=== PATIENT | female | born 1980 | race Caucasian/White ===

== ENCOUNTER 2017-05-08 07:05 | Day surgery (SDC) | payer BC ==
[~2017-05-08] VITALS: Ht 165.1 cm; Wt 96.6 kg
[~2017-05-08 07:05] MED LIST: ALKA-SELTZER P1 EAC3 PO; BIOTIN1 M1 PO; CETIRIZINE HCL10 MG PO; CIPRO500 MG PO; CLINDAMYCIN HC150 MG PO; CRANBERRY200 MG PO; FLEXERIL10 MG PO; FLUTICASONE PRO16 GM NS; HYDROCHLOROTHIA25 MG PO; K-TAB ER20 MEQ PO; LEXAPRO20 MG PO; MELATONIN2.5 MG PO; MULTI VITAMIN1 EACH PO; NAPROXEN375 MG PO; NAPROXEN500 MG PO; NORCO 10-325 T1 EACH PO; NORCO 5-325 TA1 EACH PO; PREDNISONE20 MG PO; PROMETHAZINE HC25 M1; ROPINIROLE HCL0.5 MG PO; SULFAMETHOXAZO1 EAC1; ULTRAM50 MG PO; VICODIN 5-5001 EACH PO; VITAMIN C100 MG PO; ZYRTEC10 MG PO
[2017-05-08] MEDS ORDERED: IBUPROFEN600 MG PO (11:36)
[2017-05-08] MEDS ORDERED: MAPAP325 MG PO (11:36)
[2017-05-08] MEDS ORDERED: OXYCODON-ACETA1 EAC2 PO (11:36)
--- NOTE | 2017-05-10 10:07 | OR ---
[facility] [address], [place] [address] Signed DATE OF OPERATION: 05/08/2017 SURGEON: Kyara Mejias MD PREOPERATIVE DIAGNOSES: 1. Left abnormal mammogram. 2. Left nipple inversion. POSTOPERATIVE DIAGNOSES: 1. Left abnormal mammogram. 2. Left nipple inversion. PROCEDURE: Needle localized excision of left upper outer quadrant breast tissue in continuity of subareolar breast tissue and dilated duct. ANESTHESIA: General endotracheal; Kyara Andrade CRNA and local, 10 mL of 0.25% Marcaine with epinephrine. INDICATION: This 36-year-old white woman is a patient of PEGGY Herr and in the past, underwent bilateral breast reduction and for symptomatic breast enlargement in 2011. She had no complication of infection or other problem. She had marked benefit from her headache pain and shoulder pain. She was considered to have some areas of lumpiness in the left breast and on that basis, underwent an ultrasound and subsequently mammogram and additional ultrasound on the left side. She was noted to have an inverted left nipple, which has been going on for several months and definitely not a lifelong issue. Imaging studies showed a dilated ductal system in the subareolar area on the left as well as some microcalcifications and questionable mass. There was no palpable lesion, however. The lesion was considered BI-RADS category 4. Additionally, she has had some nipple discharge (clear fluid) over time on the left side. She has had a culture of the drainage which did show Staph, though the degree to which this represented skin contamination remains uncertain. She does smoke a pack of cigarettes a day. She is admitted at this time to undergo a needle localized excision of the calcifications and associated mass of the left upper outer quadrant as well as excision of the ductal system beneath the left areola. She understands the risks of bleeding, infection, cosmetic deformity, need for additional treatment, should malignancy be found, and other unforeseen complications and wished to proceed. Electronically Signed By: KYARA MEJIAS MD 05/10/17 1007 PATIENT NAME: JOSEE MACARIO OPERATIVE REPORT DATE OF : 78 REPORT #: [id number] PHYSICIAN: KYARA MEJIAS MD PCP: SHANNON MORE REPORT IS CONFIDENTIAL AND NOT TO BE RELEASED WITHOUT AUTHORIZATION [facility] [address], [place] [address] Signed FINDINGS: The needle emanated from the upper outer aspect of the left breast. Review of the imaging studies in relationship to the needle itself was undertaken with the radiologist preoperatively. An area was marked where dilated mammary ducts were noted as well. A circumareolar incision was maintained for optimal cosmesis and wide and deep resection of the area in question was accomplished which included the subareolar ductal system and marked improvement of the inverted nipple. Specimen radiograph confirmed that the areas in question were included in the resected specimen. Good closure was undertaken with breast parenchymal reapproximation. DESCRIPTION OF PROCEDURE: The patient was brought to the operating room after having been received from Radiology suite with the wire emanating from the upper outer aspect on the left side. Additionally, a marking was made near the areola to guide the area of ductal dilatation. A general endotracheal anesthetic was preferred by the patient and was performed without problem. Preoperative antibiotic Ancef was given. Sequential compression device stockings used and heparin subcutaneously administered. The left breast was prepared with a spray Betadine type solution. The area was sterilely draped. A curvilinear incision was made in the left areola and dissection carried through the dermis with electrocautery. A flap was elevated cephalad going several centimeters to the entry point of the wire. The wire was then encountered and withdrawn into the wound and an Allis clamp applied to the parenchyma associated with the wire. Extending from a lateral to central direction, wide excision of breast tissue was undertaken with electrocautery extending beyond the area of the wire to the subareolar area, which included dilated ducts. This was excised completely. The specimen was passed for specimen radiograph and later confirmed to have the offending lesion in the specimen. Some dermal scarring which accounted in part for nipple inversion was freed allowing for more cosmetic appearance of the left nipple itself. Irrigation was undertaken. There was no untoward bleeding. The parenchyma of the breast was reapproximated with interrupted 2-0 Vicryl. Interrupted 2-0 Vicryl was used for the deep dermis and running subcuticular 3-0 Vicryl for the skin. Steri-Strips were applied as was Mepilex silver sponge dressing and an OpSite. The patient was then extubated and transferred to the recovery room in good condition having suffered no complications. Sponge, needle, and instrument counts were reported as correct x3. Electronically Signed By: KYARA MEJIAS MD 05/10/17 1007 PATIENT NAME: JOSEE MACARIO OPERATIVE REPORT DATE OF : 78 REPORT #: [id number] PHYSICIAN: KYARA MEJIAS MD PCP: SHANNON MORE REPORT IS CONFIDENTIAL AND NOT TO BE RELEASED WITHOUT AUTHORIZATION [facility] [address] [place] [address] Signed MD JAKOB Gaviria/MODL /[id number] cc: PEGGY Guzman MD Copies: SHANNON MORE CYNTHIA SUE MD ~ Electronically Signed By: KYARA MEJIAS MD 05/10/17 1007 PATIENT NAME: JOSEE MACARIO OPERATIVE REPORT DATE OF : 78 REPORT #: [id number] PHYSICIAN: KYARA MEJIAS MD PCP: SHANNON MORE REPORT IS CONFIDENTIAL AND NOT TO BE RELEASED WITHOUT AUTHORIZATION
== END 2017-05-08 13:50 | disposition home or self-care (01) ==
LOC: DS 07:05 → OPS 07:05 → EDSTATUS 08:00 → US 08:00 → OPS 08:00
PROVIDERS: Surgery
PROC: 0HBU0ZZ Excision of Left Breast, Open Approach (ICD-10-PCS; principal; 2017-05-08 10:15)
DX: N60.32 Fibrosclerosis of left breast (principal); N61.1 Abscess of the breast and nipple; E66.9 Obesity, unspecified; K21.9 Gastro-esophageal reflux disease without esophagitis; I10 Essential (primary) hypertension; F32.9 Major depressive disorder, single episode, unspecified; F17.210 Nicotine dependence, cigarettes, uncomplicated; Z68.35 Body mass index [BMI] 35.0-35.9, adult; Z88.8 Allergy status to other drugs, medicaments and biological substances; Z79.899 Other long term (current) drug therapy; Z80.3 Family history of malignant neoplasm of breast; Z98.890 Other specified postprocedural states
CPT/HCPCS: 00404; 76098; 76942; 77065; 84703; J0690; J1100; J1644; J1885; J2250; J2405; J2704; J2765; J3010; J7120

== ENCOUNTER 2018-12-04 18:57 | Emergency (ER) | payer BC ==
[~2018-12-04] VITALS: Ht 165.1 cm; Wt 96.6 kg
[~2018-12-04 18:57] MED LIST changes: +IBUPROFEN600 MG PO; +MAPAP325 MG PO; +OXYCODON-ACETA1 EAC2 PO
[2018-12-04] MEDS ORDERED: SPIRONOLACTONE25 MG PO (19:08)
[2018-12-04] MEDS ORDERED: PRAVASTATIN SOD40 MG PO (19:09)
[2018-12-04] MEDS ORDERED: OMEPRAZOLE20 MG PO (19:09)
[2018-12-04] MEDS ORDERED: VALIUM5 MG PO (21:06)
== END 2018-12-04 21:21 | disposition home or self-care (01) ==
LOC: ED 18:57
DX: H83.09 Labyrinthitis, unspecified ear (principal); F41.9 Anxiety disorder, unspecified; F17.200 Nicotine dependence, unspecified, uncomplicated; G43.909 Migraine, unspecified, not intractable, without status migrainosus; Z88.2 Allergy status to sulfonamides; Z88.8 Allergy status to other drugs, medicaments and biological substances; Z79.899 Other long term (current) drug therapy
CPT/HCPCS: 80053; 85025; 96361; 96374; 96375; 99284-25; J0780; J1200; J1885; J3360; J7030

== ENCOUNTER 2019-03-18 09:27 | Observation (INO) | payer BC ==
[~2019-03-18] VITALS: Ht 165.1 cm; Wt 101.6 kg
[~2019-03-18 09:27] MED LIST changes: +OMEPRAZOLE20 MG PO; +PRAVASTATIN SOD40 MG PO; +SPIRONOLACTONE25 MG PO; +VALIUM5 MG PO
[2019-03-18] MEDS ORDERED: VERAPAMIL ER120 M1 PO (09:43)
[2019-03-18] MEDS ORDERED: DOXYCYCLINE MO100 M1 PO (09:43)
--- NOTE | 2019-03-18 13:15 | NUR ---
Patient laying in bed, awake and alert. Patient prepared for surgery with hibiclins wipedown, SCDs placed, and pre-op checklist completed. Warm blankets provided, denies further needs at this time. Call light within reach.
--- NOTE | 2019-03-18 14:15 | NUR ---
Patient leaves unit via hospital bed to the OR
--- NOTE | 2019-03-18 16:03 | NUR ---
03/18/19 1603 Chetna Santana 1558-PATIENT ARRIVED TO PACU ON 6L MASK REACTIVE TO VOICE OPENING EYES VERY DROWSY. GAUZE CDI TO LEFT BREAST. SR. IVF INFUSING. 1600-PATIENT AROUSING TO VERBAL STIMULI DENIES PAIN OR NAUSEA. CLOSES EYES. RR EVEN.
--- NOTE | 2019-03-18 17:50 | NUR ---
Patient sitting up in bed watching tv with family. Assessment complete. LR running at 125 mls/hr. SpO2 of 93% on RA. Ice applied to left breast. Dressing is C/D/I. Denies further needs at this time, call light within reach.
--- NOTE | 2019-03-18 19:40 | NUR ---
IN ROOM FOR REPORT, PT IS AWAKE IN BED. SHE DENIES NEEDS AT THIS TIME. CALL LIGHT IS CLOSE.
--- NOTE | 2019-03-18 20:33 | NUR ---
V/S AND I&O TAKEN AND CHARTED.
--- NOTE | 2019-03-18 21:20 | NUR ---
ASSESSED PT AND ADMINISTERED MEDICATIONS. ADMINISTERED TYLENOL WELL FOR 6/10 PAIN. DRESSING IS CDI AND PT DENIES NEEDS AT THIS TIME. CALL LIGHT IS CLOSE.
--- NOTE | 2019-03-18 23:32 | NUR ---
PT IS RESTING WITH EYES CLOSED, RR IS EVEN AND NONLABORED. CALL LIGHT IS CLOSE.
--- NOTE | 2019-03-19 00:51 | NUR ---
PT'S IV WAS BEEPING, NEW BAG OF LR IS NOW INFUSING. SBA TO THE RESTROOM AND BACK TO BED. PT DENIES NEEDS AT THIS TIME. CALL LIGHT IS WITHIN REACH.
--- NOTE | 2019-03-19 03:17 | NUR ---
ADMINISTERED MOTRIN FOR 5/10 PAIN IN L BREAST. PT STATES SHE ACCIDENTALY HIT IT. DRESSING IS CDI AND NO SHADOWING NOTED. IV IS INFUSING FINE. PT DENIES FURTHER NEEDS AT THIS TIME. CALL LIGHT IS CLOSE.
--- NOTE | 2019-03-19 04:18 | NUR ---
ANSWERED CALL LIGHT. SBA TO THE BATHROOM AND BACK TO BED. NO OTHER NEEDS AT THIS TIME.
--- NOTE | 2019-03-19 04:57 | NUR ---
PT IS RESTING WITH EYES CLOSED, RR IS EVEN AND NONLABORED. CALL LIGHT IS CLOSE AND IV IS INFUSING FINE.
--- NOTE | 2019-03-19 07:03 | NUR ---
PT RESTING IN SEMIFOWLERS POSITION IN BED ALERT AND ORIENTED AND WATCHING TV. PT DENIES NEEDS OR CONCERNS. CALL LIGHT AND H2O IN REACH. BEDSIDE REPORT RECEIVED FROM MIMI PATEL.
--- NOTE | 2019-03-19 08:26 | NUR ---
pt s/l for ambulation in halls at this time
--- NOTE | 2019-03-19 08:45 | NUR ---
PT ASSESSMENT COMPLETED AND AM MEDS ADMINISTERED. PT DENIES PAIN, SOB, NAUSEA OR OTHER SYMPTOMS. DRESSING TO LEFT BREAST ABCESS REMOVED, CLEANSED WITH NS PAT DRIED AND NEW STERILE 4X4 GUAZE AND TAPE APPLIED WITH ASSISTANCE FROM STUDENT NURSE. CALL LIGHT AND H2O IN REACH. VSS. PT VOIDING QS CLEAR YELLOW URINE AND TOLERATING ORAL INTAKE VERY WELL. NO NEEDS OR CONCERNS VOICED.
--- NOTE | 2019-03-19 10:45 | NUR ---
pt alert and oriented resting in bed no needs or concerns voiced.
[2019-03-19] MEDS ORDERED: AMOX TR-K CLV1 EAC1 PO (10:57)
[2019-03-19] MEDS ORDERED: HYDROMORPHONE HC4 MG PO (10:58)
[2019-03-19] MEDS ORDERED: IBUPROFEN600 MG PO (10:58)
[2019-03-19] MEDS ORDERED: TYLENOL EXTRA500 MG PO (10:58)
--- NOTE | 2019-03-19 13:14 | NUR ---
PT ALERT,ORIENTED AND VISITING WITH HER . PT IS WAITING FOR DC. GAVE INFO OF DC AND WHAT TO EXPECT. PT IS VERY CHEERFUL AND MENTIONED THAT SHE IS VERY PLEASED WITH CARE SHE HAS RECEIVED AT [facility] AND ALSO FROM DR MEJIAS. GAVE BLESSING, WILL FOLLOW NEEDED
--- NOTE | 2019-03-19 13:20 | OR ---
[facility] [address] [place], [place] [address] Signed DATE OF OPERATION: 03/18/2019 SURGEON: Kyara Mejias MD PREOPERATIVE DIAGNOSES: 1. Left subareolar breast abscess. 2. History of bilateral breast reduction. POSTOPERATIVE DIAGNOSES: 1. Left subareolar breast abscess. 2. History of bilateral breast reduction. 3. Fibrotic, inflamed subareolar ductal tissue. PROCEDURE: 1. Incision and drainage of left subareolar abscess. 2. Left subareolar breast excision. ANESTHESIA: General LMA; Kimberly Mcrae CRNA. INDICATION: This is a 38-year-old white woman, who has had over a week of increasing pain in the left subareolar area. She has undergone bilateral reduction mammoplasty in the past. She has had fevers to 101 and has been unresponsive to an oral antibiotic doxycycline prescribed by her primary care provider. Examination shows her to have erythema and marked tenderness in the 2 o'clock position of the left areolar margin. I have advised incision and drainage and possible subareolar breast tissue excision to remedy the obvious breast abscess problem. She did have an ultrasound, which showed 2 or 3 abscess cavities extending below the areolar area. She understands the risks of bleeding, infection, cosmetic deformity, and other unforeseen complications and wished to proceed. FINDINGS: Indeed, there was purulent material upon incision at the areolar margin in the 2 o'clock position. Gram stain and cultures were obtained. Importantly, however, she had fibrotic pathologic ductal tissue beneath the areola, for which wide excision was undertaken with care taken to excise that below the dermis of the areolar margin itself. Partial parenchymal closure was undertaken with placement of a Carri drain deep within the substance of the excision site. DESCRIPTION OF PROCEDURE: Electronically Signed By: KYARA MEJIAS MD 03/19/19 1320 PATIENT NAME: JOSEE MACARIO OPERATIVE REPORT DATE OF : 78 REPORT #: [id number] PHYSICIAN: KYARA MEJIAS MD PCP: JOSE GERMAN REPORT IS CONFIDENTIAL AND NOT TO BE RELEASED WITHOUT AUTHORIZATION [facility] [address] [place], [place] [address] Signed The patient was brought to the operating room, given a general anesthetic by LMA technique. Preoperative antibiotic Ancef was given. Sequential compression device stockings used and heparin subcutaneously administered. After satisfactory general LMA anesthetic, the left breast was prepared with a DuraPrep solution and draped sterilely. The areolar margin at the 2 o'clock position was incised with a #15 blade, allowing for egress of purulent material. Photograph was taken. Gram stain and cultures were obtained for both aerobes and anaerobes. Further interrogation of the subareolar space showed a firm fibrotic tissue. Incision was extended along the areolar margin more fully. Excision of breast tissue was undertaken beneath the areola itself including the pathologic ductal system below the dermis. It was taken deeply into the area of fibrotic pathologic breast tissue as well. By conclusion, all pathologic ductal tissue was excised fully. Electrocautery was used for hemostasis. Irrigation was undertaken copiously to assure hemostasis. A quarter-inch Lawley placed in the depths of the excision cavity and parenchymal reapproximation undertaken with interrupted 2-0 Vicryl, few interrupted 3-0 Vicryl in deep dermal layer was undertaken. The drain was secured to the skin with a nylon suture. A fluff gauze dressing and additional gauze applied as was a silk tape. The patient was extubated and transferred to recovery room in good condition having suffered no complications. Sponge, needle, and instrument counts were correct x3. Kyara Mejias MD /NILAL /[id number] cc: MD Jose Rojas FNP Copies: ALEXY SOARES MD, WADE R FNP ~ Electronically Signed By: KYARA MEJIAS MD 03/19/19 1320 PATIENT NAME: JOSEE MACARIO OPERATIVE REPORT DATE OF : 78 REPORT #: [id number] PHYSICIAN: KYARA MEJAIS MD PCP: JOSE GERMAN REPORT IS CONFIDENTIAL AND NOT TO BE RELEASED WITHOUT AUTHORIZATION
--- NOTE | 2019-03-19 13:20 | HP ---
[facility] [address] [place], [place] [address] Signed ADMISSION DATE: 03/18/2019 REASON FOR ADMISSION: Complex left subareolar breast abscess. HISTORY OF PRESENT ILLNESS: This 38-year-old obese white woman has had over a week of increasing pain and erythema of her left subareolar area. She saw her primary care provider on Sunday, a week ago and she was started on doxycycline. Her symptoms did not improve and she was urged to present to the emergency room on Sunday, 4 days ago, but she did not do so. She then noted some nipple drainage and had a fever to 101 on Sunday (today is Sunday). She presented to emergency room where she was evaluated by Dr. Soares. Tenderness and mild erythema were noted in the left areolar area and an ultrasound was performed showing complex fluid collection with at least 3 fluid collections of 2 cm in size. She is admitted for further evaluation and care to undergo incision and drainage of probable left subareolar breast abscess. PAST MEDICAL HISTORY: Does include x3, as well as breast reduction. She has had 2 cysts removed from the right breast. She had a needle localized excisional biopsy by me in 2018 for suspicious calcium deposits, which proved to be benign. She has no known family history of breast cancer. She has had a long-standing bilateral inverted nipple finding. Past medical history significant for morbid obesity and breast reduction surgery as previously noted. She has allergy to sulfa medications. She does have hypertension, for which she takes verapamil and spironolactone and reflux disease, for which she takes omeprazole. She has dyslipidemia and takes pravastatin for that. She is also taking ropinirole. REVIEW OF SYSTEMS: She denies any fever or chills, though she generally does not feel well. 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 She has had no solid food since yesterday. SOCIAL HISTORY: She is . She has children. She lives in [place]. PHYSICAL EXAMINATION: GENERAL: Obese white woman, who looks to be in moderate discomfort. Electronically Signed By: KYARA MEJIAS MD 03/19/19 1320 PATIENT NAME: JOSEE MACARIO HISTORY AND PHYSICAL DATE OF : 78 REPORT #: [id number] PHYSICIAN: KYARA MEJIAS MD PCP: JOSE GERMAN REPORT IS CONFIDENTIAL AND NOT TO BE RELEASED WITHOUT AUTHORIZATION [facility] [address] [place], [place] [address] Signed HEENT: Mucous membranes are quite dry. NECK: Trachea is midline. CHEST: Clear. HEART: Regular without murmur. BREASTS: There are scars on both right and left breasts that are consistent with prior reduction mammoplasty. Focused attention to the left areolar area shows a somewhat edematous area, mild erythema, and mild local tenderness. Inverted nipples noted on left and right side. Palpation does not reveal focal mass. There is tenderness, however. The left axilla is normal. ABDOMEN: Obese, but soft. There are scars from prior laparoscopic cholecystectomy. EXTREMITIES: Show no clubbing, cyanosis, or edema. DIAGNOSTIC DATA: Laboratory study from emergency room shows a white count of 10, hematocrit of 50, platelets of 213,000. Basic panel and beta-hCG are pending. I reviewed the ultrasound myself. Interpretation by Dr. Ingram, the radiologist describes that immediately beneath the left areola there is a 20 mm heterogeneous hypoechoic area showing hypervascularity consistent with abscess or granulation tissue. There is a tract extending to the upper outer aspect leading to an irregular hypoechoic fluid-filled collection 18 mm, about 15 mm from the skin surface. ASSESSMENT: The patient has probable left breast abscess, for which incision, drainage, and debridement is appropriate. The risk of bleeding, infection, cosmetic deformity, need for additional treatment including partial breast resection was all reviewed in detail. She understands and wished to proceed. Plan was directly admit to the hospital, begin IV fluids, keep n.p.o. anticipating drainage and debridement today. Kyara Mejias MD JM/MODL /[id number] cc: Jose Soares MD Electronically Signed By: KYARA MEJIAS MD 03/19/19 1320 PATIENT NAME: JOSEE MACARIO HISTORY AND PHYSICAL DATE OF : 78 REPORT #: [id number] PHYSICIAN: KYARA MEJIAS MD PCP: JOSE GERMAN REPORT IS CONFIDENTIAL AND NOT TO BE RELEASED WITHOUT AUTHORIZATION [address] [address] Signed Copies: JOSE SOARES MD ~ Electronically Signed By: KYARA MEJIAS MD 03/19/19 1320 PATIENT NAME: JOSEE MACARIO HISTORY AND PHYSICAL DATE OF : 78 REPORT #: [id number] PHYSICIAN: KYARA MEJIAS MD PCP: JOSE GERMAN REPORT IS CONFIDENTIAL AND NOT TO BE RELEASED WITHOUT AUTHORIZATION
== END 2019-03-19 12:45 | disposition home or self-care (01) ==
LOC: ED 09:27 → MS 09:29
PROVIDERS: ADMIT Surgery
PROC: 0HBU0ZZ Excision of Left Breast, Open Approach (ICD-10-PCS; 2019-03-18)
PROC: 0H9U0ZZ Drainage of Left Breast, Open Approach (ICD-10-PCS; principal; 2019-03-18 15:00)
DX: N61.1 Abscess of the breast and nipple (principal); N60.32 Fibrosclerosis of left breast; F17.210 Nicotine dependence, cigarettes, uncomplicated; K21.9 Gastro-esophageal reflux disease without esophagitis; E66.9 Obesity, unspecified; Z68.37 Body mass index [BMI] 37.0-37.9, adult; Z98.890 Other specified postprocedural states; Z88.2 Allergy status to sulfonamides; Z88.8 Allergy status to other drugs, medicaments and biological substances; Z79.899 Other long term (current) drug therapy
CPT/HCPCS: 00404; 76642; 80048; 84703; 85025; 87070; 87075; 87205; 94762; 96361; 96372; 96376; 99284-25; 99406; A9270; G0378; J0690; J1100; J1170; J1644; J1885; J2001; J2250; J2405; J2704; J3010; J7030; J7121

== ENCOUNTER 2019-08-20 14:03 | Observation (INO) | payer BC, OTHER ==
[~2019-08-20] VITALS: Ht 165.1 cm; Wt 101.2 kg
[~2019-08-20 14:03] MED LIST changes: +AMOX TR-K CLV1 EAC1 PO; +DOXYCYCLINE MO100 M1 PO; +HYDROMORPHONE HC4 MG PO; +TYLENOL EXTRA500 MG PO; +VERAPAMIL ER120 M1 PO
--- NOTE | 2019-08-20 19:05 | NUR ---
SHIFT REPORT RECEIVED FROM NETTE LE. PT RESTING IN BED,WATCHING TV. NO NEEDS AT THIS TIME. CALL LIGHT IN REACH.
--- NOTE | 2019-08-20 20:10 | NUR ---
ASSESSMENT COMPLETED. SCHEDULED MEDS PROVIDED. PT COMPLAINS OF NAUSEA, PRN NAUSEA MED PROVIDED. LUNGS CLEAR, BOWEL TONES ACTIVE. NO EDEMA NOTED. PT DENIES PAIN. IV PT STATES SHE HAS PAIN AT SITE, FLUSHED WELL. ICE PACK PROVIDED. NO OTHER NEEDS AT THIS TIME. CALL LIGHT IN REACH.
--- NOTE | 2019-08-20 20:39 | NUR ---
PT SMOKES A PACK CIGARETTES PER DAY PER KAMRYN, RESPITORY THERAPIST, REQUESTED TO CONTACT PT FOR "NICTINE PATCHES, AND GUM". RECEIVED THE ORDER THEN WENT TO DISCUSS THE MED WITH PT, WHO STATED THAT SHE IS "ALLERGIC" TO THE ADHESIVE ON THE PATCHES, CAUSES A RASH. SHE STATED SHE CAN USE THE GUM HOWEVER. ORDER DC'D.
--- NOTE | 2019-08-20 21:19 | NUR ---
scheduled meds provided. nicotine gum provided. new iv placed in right wrist. no other needs. call light in reach.
--- NOTE | 2019-08-20 21:20 | NUR ---
VITALS DONE AND CHARTED. I&OS I WILL CHART BEFORE 2200. BEDSIDE TABLE AND CALL LIGHT IN REACH.
--- NOTE | 2019-08-21 01:50 | NUR ---
PT STATES SHE HAS 7/10 PAIN IN LEFT BREAST. PRN PAIN MED PROVIDED. NO OTHER NEEDS AT THIS TIME. CALL LIGHT IN REACH.
--- NOTE | 2019-08-21 01:51 | NUR ---
VITALS AND I&OS DONE AND CHARTED. BEDSIDE TABLE AND CALL LIGHT IN REACH.
--- NOTE | 2019-08-21 04:04 | NUR ---
SCHEDULED MED PROVIDED. PAIN 2, PT DENIES NEED FOR INTERVENTION. ASSESSMENT COMPLETED.N PT UP TO BR AND BACK TO BED. CALL LIGHT IN REACH.
--- NOTE | 2019-08-21 05:48 | NUR ---
SCHEDULED MED PROVIDED. NO OTHER NEEDS AT THIS TIME. CALL LIGHT IN REACH.
--- NOTE | 2019-08-21 06:06 | CONS ---
[facility] [address], [place] [address] Signed DATE OF CONSULTATION: 08/20/2019 CHIEF COMPLAINT: Recurrent left breast abscess. HISTORY OF PRESENT ILLNESS: Josee is a 39-year-old female, whom I first met back in 2009. She had been living in [place], [place]. She had incision and drainage of her right breast abscess in May of that year. By December of 2009, I had incised and drained the right breast here in [place], [place]. She grew out anaerobic bacteria, which were back beta-lactamase sensitive. Therefore, the amoxicillin was not helpful. She had to be on Flagyl. She had come down to [place] to the [facility]. She has done exceptionally well and is now working and to Ravi, who also is working here in [place]. I helped her with upper lower endoscopy in 2011 and then that same year she had bilateral breast reduction surgery over in [place], [place]. She then had a sinus tract of that left breast in 2014 along the edge of the areola laterally and we excised that for her. She told me that healed up nicely. She had a breast lesion on the right in 2017, that required a needle localization for Dr. uHmphries to remove and there apparently was a dilated duct with some infection there as well. She said that has healed up fine. She then came back to Dr. Humphries in March 2019 with left breast subareolar abscess. She had incision and drainage of that in the OR and had been on doxycycline and Cipro. At one point, she had Augmentin as well, that seemed to heal up very nicely, but she had a small abscess in the left axilla. He incised and drained that in the office with a stab incision in July of this year and that seems to be healing quite nicely as well. However, for the last 3 days, she has developed recurrent pain, swelling, and warmth underneath the left subareolar area. She finally came to the emergency room earlier today. Earlier, she had been to her primary care provider who sent to the [facility], who send her to the emergency room. In Dr. Humphries's absence, then I was asked to admit her as a general surgeon on-call. She has been admitted and started on vancomycin. In the meantime, she seems to be doing well. She does not appear to be systemically ill or toxic. ALLERGIES: Wellbutrin causes anger, sulfa causes hives, terbutaline causes increased blood pressure. MEDICATIONS: Ibuprofen, Tylenol, cetrizine, ropinirole, spironolactone, omeprazole, pravastatin, and verapamil. PAST MEDICAL HISTORY: Includes lower back pain and muscle spasms after falling down some stairs with a sacral fracture. She also has had maxillary sinusitis, hypertension, bilateral breast infections, alcoholism, depression, H. pylori, migraine headaches and anxiety, and is Electronically Signed By: BETH ABARCA MD 08/21/19605 PATIENT NAME: JOSEE MACARIO CONSULTATION DATE OF : 78 REPORT #: [id number] PHYSICIAN: BETH ABARCA MD PCP: JOSE GERMAN REPORT IS CONFIDENTIAL AND NOT TO BE RELEASED WITHOUT AUTHORIZATION [address] [address] Signed apparently a prediabetic. PAST SURGICAL HISTORY: Includes C-sections in 1997, 2004, and also in 2007, also bilateral tubal ligation in 2007, laparoscopic cholecystectomy in December 2010, bilateral breast reduction surgery in [place], [place] in July of 2011. She has had bilateral cysts removed in 2008 and 2009. She has had incision and drainage of her right breast x2 in 2009 as well as left breast sinus excision in 2014, and then the right breast biopsy/abscess drainage in 2017, also left breast subareolar abscess drainage in March 2019, and left axillary drainage in July of 2019. She has had upper and lower endoscopy in 2011. SOCIAL HISTORY: She is now to Ravi, at [phone]. 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 She continues to smoke. 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 She has 3 children. Jose German is her primary care provider. They prefer the [facility]. FAMILY HISTORY: Father of heart disease at age 41. Her maternal grandmother had breast cancer at age 34 and maternal aunt had breast cancer at age 37. There is no family history of colon cancer or polyps. REVIEW OF SYSTEMS: She had 10 systems reviewed and she told me she is really doing great at this point in her life except for these recurrent breast abscesses, which have obviously been quite problematic. PHYSICAL EXAMINATION: VITAL SIGNS: Her blood pressure is 129/83, heart rate is 64, respiratory rate is 16, temperature is 97.9. She is 96% on room air. She is 5 feet 5 inches at 101 kg. GENERAL: Josee is a 39-year-old female, appears healthy and at her stated age. Our nurse Bailee is with us in the room. LUNGS: Clear to auscultation. HEART: Regular rate and rhythm without murmurs. ABDOMEN: Obese. BREASTS: The right breast is unremarkable. She has the standard breast reduction surgical scars. On the left breast and axilla, she has a healing stab wounds in the left axilla without any fluctuance. Underneath the left nipple areolar complex, there is an area probably 3 or 4 cm in diameter. It is quite indurated and firm, although not overly painful at this point, having received Dilaudid. LABORATORY DATA: Her white blood count is 12.1, hemoglobin 17, neutrophils 63, and platelets 254. BUN 12, creatinine 0.57. Her glucose is 74. Liver function tests are negative. Albumin is Electronically Signed By: BETH ABARCA MD 08/21/19 0606 PATIENT NAME: JOSEE MACARIO CONSULTATION DATE OF : 78 REPORT #: [id number] PHYSICIAN: BETH ABARCA MD PCP: JOSE GERMAN REPORT IS CONFIDENTIAL AND NOT TO BE RELEASED WITHOUT AUTHORIZATION [facility] [address], [place] [address] Signed 4.4. The COVID is pending. The ultrasound from March 2019 and today are both reviewed. She has 2 small fluid collections at the 1 o'clock position about 0.6 x 0.9 x 1.4 cm each. At the 6 o'clock position, it is a larger area, maybe 1.2 x 2.2 x 4.1 cm. ASSESSMENT AND PLAN: Josee is a 39-year-old female, who presents with recurrent left subareolar breast abscess, having had that drained in March of this year. Also, some of the subareolar ductal tissue had been removed and the Carri drain had been left in place. I explained to Josee at this point, we are going to get her on antibiotics this evening and get her hydrated. We will keep her n.p.o. after midnight. We will add her on to our OR schedule in the morning and to have that drained. She is quite familiar with this whole process. She has expressed understanding and agrees above plan. Beth Abarca MD ALB/MODL /[id number] cc: PEGGY Enriquez MD John McBee, MD Copies: JOSE GERMAN ANDREW L MD MCBEE, JOHN MD ~ Electronically Signed By: BETH ABARCA MD 08/21/19 0606 PATIENT NAME: JOSEE MACARIO JIMKAMINI CONSULTATION DATE OF : 78 REPORT #: [id number] PHYSICIAN: BETH ABARCA MD PCP: JOSE GERMAN REPORT IS CONFIDENTIAL AND NOT TO BE RELEASED WITHOUT AUTHORIZATION
--- NOTE | 2019-08-21 06:51 | NUR ---
PT STATES SHE HAS 6/10 PAIN IN LEFT BREAST. PRN PAIN MED PROVIDED. NO OTHER NEEDS AT THIS TIME. CALL LIGHT IN REACH.
--- NOTE | 2019-08-21 07:38 | NUR ---
0726: Report received from Jeannine LE. Pt resting in bed and she states her pain is "good". Call garcia within reach and she denies any other problems.
--- NOTE | 2019-08-21 09:23 | NUR ---
0923: PT TAKEN TO THE OR AT THIS TIME. PT COMPLAINS OF A ADAMS AND NAUSEA WHICH SHE HAS HAD 300 ML OF LIGHT GREEN EMESIS. PT MEDICATED FOR HER ADAMS AND NAUSEA, SEE EMAR. DUE TO PT VOMITING SHE WAS NOT GIVEN HER 0900 PO MEDS AND THE OR CREW WAS NOTIFIED. VSS, SEE ASSESSMENT.
--- NOTE | 2019-08-21 11:34 | NUR ---
PT TAKEN TO OR, GUIDED TO HER RM WHERE HE WILL WAIT FOR HER RETURN. GAVE ENCOURAGEMENT
--- NOTE | 2019-08-21 11:47 | NUR ---
08/21/19 1147 Steven Rowell REORIENTED TO TIME AND SITUATION ON ENTRY TO PACU. DENIES NAUSEA OR PAIN. FALLS ASLEEP EASILY.
--- NOTE | 2019-08-21 12:15 | NUR ---
1210: PT RETURNED TO HER ROOM IN 107 FROM PACU. HER IS PRESENT IN THE ROOM. PT DENIES ANY PAIN OR NAUSEA AND IS ALERT AND ORIENTED. LEFT BREAST DRESSING IN CDI AND HER VITAL SIGNS ARE STABLE. PT PLACED ON PULSE OX AND HER SAT IS 93% ON ROOM AIR, SCD'S ON AND RUNNING.
--- NOTE | 2019-08-21 12:29 | NUR ---
Pt continues to deny any pain or nausea. Will continue to monitor. Pt instructed to call before getting out of bed. Sat remains in the 90's on room air.
--- NOTE | 2019-08-21 13:29 | NUR ---
PATIENT CALLED FOR ASSISTANCE TO BR. PATIENT FEELING VERY LIGHTHEADED, USED BSC INSTEAD. IN ROOM, CALLLIGHT IN REACH, NO OTHER NEEDS AT THIS TIME
--- NOTE | 2019-08-21 14:19 | NUR ---
Left breast dressing remains cdi. Ice placed as ordered. Pt states her pain is now a 3/10, see emar. Pt continues to deny any nausea.
--- NOTE | 2019-08-21 14:36 | NUR ---
REPORT RECEIVED FROM MIMI GARCIA. PT RESTING ON LEFT SIDE. RESPIRATIONS EVEN AND UNLABORED. O2 AT 94% ON ROOM AIR. HR = [address] BED RAILS UP. CALL LIGHT WITHIN REACH.
--- NOTE | 2019-08-21 15:30 | NUR ---
VITALS AND ASSESSMENT DUE. THIS RN TO ROOM. PT UP TO EDGE OF BED. PT REPORTS RESTLESS LEG SYNDROME PER BASELINE AND REQUESTS SCD'S BE REMOVED FOR A TIME. EDUCATION DONE. SCD'S REMOVED PER PT REQUEST. VITALS TAKEN. CPOX REMAINS IN PLACE WITH O2 ABOVE 92% ON ROOM AIR. VITAL SIGNS STABLE. ASSESSMENT DONE. DRESSING SHOWS SMALL AMOUNT OF SEROUS DRAINAGE SHADOWING, OTHER [place] C/D/I. PT REPORTS 1/10 PAIN AND DENIES NEED FOR ADDITIONAL PAIN MEDICATION. FINE CRACKLS NOTED IN RIGHT LOWER LOB OF LUNGS, COUGH AND DEEP BREATHING ENCOURAGED. ICE PACK IN PLACE TO SURGICAL SITE. PT DENIES NAUSEA. DINNER ORDER PLACED. NO ADDITIONAL REQUESTS OR COMPLAINTS AT THIS TIME. CALL LIGHT WITHIN REACH.
--- NOTE | 2019-08-21 16:14 | NUR ---
MED RECONCILIATION COMPLETED
--- NOTE | 2019-08-21 17:27 | NUR ---
MEDICATION DUE. PT RESTING IN BED. FINISHED WITH DINNER. PT REPORTS 2/10 PAIN AT THIS TIME, AND DENIES NEED FOR PAIN MEDICATION. FRESH ICE PACK PROVIDED. WATER REFILLED. PT REPORTS CRAVINGS FOR CIGGARETTS. NICOTENE GUM GIVEN (SEE MAR). VITALS TAKEN. I/Os RECORDED. NO ADDITIONAL REQUESTS OR COMPLAINTS AT THIS TIME. CALL LIGHT WITHIN REACH.
--- NOTE | 2019-08-21 18:22 | NUR ---
PT HERE FOR I AND D OF ABCESS TO LEFT BREAST. DRESSING IN PLACE WITH SMALL AMOUNT OF SERIOUS DRAINAGE THIS SHIFT. BID DRESSING CHANGES TO START THIS EVENING. ICE PACK IN PLACE. IV ABX GIVEN AND SCHEDULED. PT REPORTS 1-08/14 PAIN, SEE MAR FOR MEDICATION GIVEN. STAND BY ASSIST UP TO RESTROOM. PT DIZZY AT TIMES AFTER SURGERY. PT TOELRATING REGULAR DIET WITH GOOD APPTITIE. NAUSEA THIS MORNING BEFORE SURGERY, MORNING MEDICAITONS HELD, MD AWARE. NO NAUSEA SINCE SURGERY. PT HAVING NICOTENE CRAVINGS, GUM PROVIDED. PT VOIDING QUANTITY SUFFICENT. PT USES CALL LIGHT APPROPRIATLY.
--- NOTE | 2019-08-21 19:05 | NUR ---
SHIFT REPORT RECEIVED FROM KENA LE. PT RESTING IN BED, WATCHING TV. PAIN 2/, ICE PACK ON LEFT BREAST. NO NEEDS AT THIS TIME. CALL LIGHT IN REACH.
--- NOTE | 2019-08-21 21:24 | NUR ---
ASSESSMENT, VS AND I&O COMPLETED. PAIN 8/10 IN LEFT BREAST, PRN PAIN MED PROVIDED. PACKING AND DRESSING CLEANED AND CHANGED, PT TOLERATED WELL. WOUND WNL, SCANT SS DRAINAGE. IV FLUIDS INFUSING PER ORDER. IV IN RIGHT HAND CDI, WNL, FLUSHED WELL. IV IN LEFT HAND UNABLE TO FLUSH, IV DCd WNL. ICE WATER PROVIDED. NO OTHER NEEDS AT THIS TIME. CALL LIGHT IN REACH.
--- NOTE | 2019-08-21 23:33 | NUR ---
PT AWAKE IN ROOM, WATCHING TV. NO NEEDS AT THIS TIME. CALL LIGHT IN REACH.
--- NOTE | 2019-08-22 00:17 | NUR ---
PT AWAKE IN ROOM. NEW BAG OF IV FLUIDS PROVIDED. PT DENIES NEED FOR PAIN INTERVENTION AT THIS TIME. CALL LIGHT IN REACH.
--- NOTE | 2019-08-22 01:08 | NUR ---
PT RESTING IN BED, EYES CLOSED. RR EVEN, UNLABORED. IV FLUIDS INFUSING PER ORDER. CALL LIGHT IN REACH.
--- NOTE | 2019-08-22 01:48 | NUR ---
PT STATES SHE HAS 6/10 PAIN IN LEFT BREAST, PRN PAIN MED PROVIDED. VS AND I&O COMPLETED. IV FLUIDS INFUSING PER ORDER. ICE WATER PROVIDED. NO OTHER NEEDS. CALL LIGHT IN REACH.
--- NOTE | 2019-08-22 01:50 | NUR ---
VITALS AND I&OS DONE AND CHARTED. BEDSIDE TABLE AND CALL LIGHT IN REACH.
--- NOTE | 2019-08-22 03:12 | NUR ---
PT RESTING IN BED, EYES CLOSED. RR EVEN, UNLABORED. IV FLUIDS INFUSING PER ORDER. CALL LIGHT IN REACH.
--- NOTE | 2019-08-22 04:10 | NUR ---
SCHEDULED MEDS PROVIDED. ASSESSMENT COMPLETED. BANDAGING CDI, WNL. PAIN 04/14, PT DENIES NEED FOR PAIN INTERVENTION. NO OTHER NEEDS AT THIS TIME. CALL LIGHT IN REACH.
--- NOTE | 2019-08-22 05:56 | NUR ---
VITALS AND I&OS DONE AND CHARTED. BEDSIDE TABLE AND CALL LIGHT IN REACH. FRESH ICE WATER GIVEN. PT NEEDS NOTHING MORE FROM ME AT THIS TIME.
--- NOTE | 2019-08-22 06:19 | OR ---
[facility] [address], [place] [address] Signed DATE OF OPERATION: 08/21/2019 SURGEON: Beth Abarca MD PREOPERATIVE DIAGNOSIS: Recurrent left breast subareolar abscess. POSTOPERATIVE DIAGNOSIS: Recurrent left breast subareolar abscess. PROCEDURES: 1. Incision and drainage of recurrent left breast subareolar abscess. 2. Deep wound cultures. ESTIMATED BLOOD LOSS: None. FINDINGS: Josee has a small hole in the lateral aspect of her nipple at the 3 o'clock position. This represented the entry site for her abscess just below the skin in a pocket probably a cm so wide and 2 or 3 cm in length. The other heterogeneous tissue on the ultrasound is her indurated tissue from her surgery back in March of this year. INDICATIONS: Josee is a 39-year-old female I have known for quite some time. She has had trouble with right breast abscess way back in 2009. Then in 2011, she ended up with bilateral breast reduction surgery. More recently, she had an abscess underneath the left nipple areolar complex, treated with Dr. Humphries. That tissue had been removed and a [place] drain had been placed. She had taken antibiotics. She healed up quite nicely. Then last month, she had a small abscess in her left axilla that Dr. Humphries was able to drain in his office. That also was healed up quite nicely. She had developed fever, pain and induration behind that left nipple areolar complex three days prior to admission. She had been to her primary care provider who sent her to the [facility], we then sent her to the emergency room. In Dr. Humphries's absence, I was asked to admit her as a general surgeon on-call. I had met with Josee last evening and we could certainly feel that indurated tissue behind her left nipple areolar complex. Not really any significant erythema. It was hard to know any obvious fluctuance. The ultrasound from earlier this year as well as yesterday was reviewed. I explained to Josee would start on antibiotics overnight, plan on doing an incision and drainage in the morning. She is very familiar with this whole process. We planned to use the same incision that she had Electronically Signed By: BETH ABARCA MD 08/22/19 0619 PATIENT NAME: JOSEE MACARIO OPERATIVE REPORT DATE OF : 78 REPORT #: [id number] PHYSICIAN: BETH ABARCA MD PCP: JOSE GERMAN REPORT IS CONFIDENTIAL AND NOT TO BE RELEASED WITHOUT AUTHORIZATION [address] [address] Signed previously from around the 1 o'clock to the 3 o'clock position on the left areolar complex. She understands the wound to be left open to heal in secondarily most likely. There was always some risk to the surgery including, but not limited to bleeding, infection, scarring, change in contour of the skin as well as recurrent abscess and/or loss of that nipple areolar skin. She had expressed understanding and wished to proceed. DESCRIPTION OF PROCEDURE: I had met with Josee in our preop area. We agreed on the area of the left nipple areolar complex and marked that appropriately. After this, Josee had been taken into the operating room and placed in the supine position under general LMA anesthesia. She was already on preoperative vancomycin and clindamycin. She was on preoperative heparin as well as her SCDs. She was then prepped and draped in the usual sterile fashion. The repeat physical exam was the same. We used a #15 blade knife to excise her previous scar from the 1 to 3 o'clock position on the edge of that left nipple areolar complex. We entered into the subcutaneous tissues and we encountered mainly indurated tissue and it took just a minute to realize there was some pus coming out from underneath the skin as well as the 3 o'clock position of her nipple. Some blunt dissection with hemostats, then we found the pocket and it was probably a cm or so wide at least 3 cm in length. We took deep wound cultures and after that, we irrigated and suctioned out the cavity. Really, no granulation tissue. We then sharply debrided this small 2-3 mm opening in the lateral aspect of her left nipple. We left that open to heal in secondarily as well. We then injected local anesthetic into the wound and irrigated the wound once again. Full strength Dakin's solution was used to pack the wound. Dry gauze and tape were placed over that. Josee was awakened from anesthesia, extubated in the OR, and taken to the recovery room in stable condition. Beth Abarca MD ALB/MODL /[id number] cc: PEGGY Enriquez MD Electronically Signed By: BETH ABARCA MD 08/22/19 0619 PATIENT NAME: JOSEE MACARIO OPERATIVE REPORT DATE OF : 78 REPORT #: [id number] PHYSICIAN: BETH ABARCA MD PCP: JOSE GERMAN REPORT IS CONFIDENTIAL AND NOT TO BE RELEASED WITHOUT AUTHORIZATION [facility] [address], [place] [address] Signed Everardo Humphries MD Copies: JOSE GREMAN ANDREW L MD MCBEE, JOHN MD ~ Electronically Signed By: BETH ABARCA MD 08/22/19 0619 PATIENT NAME: JOSEE MACARIO OPERATIVE REPORT DATE OF : 78 REPORT #: [id number] PHYSICIAN: BETH ABARCA MD PCP: JOSE GERMAN REPORT IS CONFIDENTIAL AND NOT TO BE RELEASED WITHOUT AUTHORIZATION
--- NOTE | 2019-08-22 06:37 | NUR ---
MD IN ROOM. PACKING REMOVED AND PT EDUCATION PROVIDED ON REPACKING. PT PAIN 8/10, PRN PAIN MED PROVIDED. CLEAR SODA AND CRACKERS PROVIDED. NO OTHER NEEDS AT THIS TIME. CALL LIGHT IN REACH.
--- NOTE | 2019-08-22 07:15 | NUR ---
0708: Report received from Jeannine LE. Pt resting in bed and states her pain is a 5/10 and is decreasing. She denies any other problems. Call garcia within reach.
[2019-08-22] MEDS ORDERED: NORCO 10-325 T1 EACH PO (07:40)
[2019-08-22] MEDS ORDERED: CLEOCIN HCL300 MG PO (07:41)
--- NOTE | 2019-08-22 08:51 | NUR ---
PT GETTING JEFFERY FOR DC AT THIS TIME. SHE STATES HER PAIN IS UNDER CONTROL AND SHE DENIES ANY NEW PROBLEMS. DC INSTRUCTIONS GIVEN.
--- NOTE | 2019-08-22 13:15 | DS ---
[facility] [address], [place] [address] Signed ADMISSION DATE: 08/20/2019 DISCHARGE DATE: 08/22/2019 FINAL DIAGNOSES: Recurrent left breast/subareolar abscess. PROCEDURE: Incision and drainage of left breast/subareolar abscess. HISTORY OF PRESENT ILLNESS: Josee is a 39-year-old female, who has had trouble with bilateral breast abscesses, both before and after bilateral breast reduction. Most recently, Dr. Humphries had helped her in May of this year and then in July of this year in his office. She had been healing up quite nicely following those 2 procedures. Unfortunately, she developed an infection behind the left nipple-areolar complex. In the end, it looks like there was a small hole in the nipple that allowed the bacteria down into the fluid as the source of her infection. She had presented to her primary care provider, who sent her at the [facility]gent [facility]. The [facility] sent her to the emergency room, then I was asked to admit her as a general surgeon on-call in Dr. Humphries's absence. HOSPITAL COURSE: Josee was admitted as above and started on vancomycin and clindamycin. We took her to the operating room yesterday and used her previous incision at the 1 o'clock position on the left areola and we opened that up and direct underneath the skin from the 3 o'clock to about the 7 o'clock position. Underneath the areola, there was a fluid collection/abscess. All the pus was evacuated and cleaned out. We found a small hole in the nipple and we debrided that as well. The other areas were fine. We packed that wound with a Dakin's soaked solution, and we kept her overnight to teach her, her wound care. This morning, she is doing great. She has a little postoperative pain, but there is no erythema, no odor, no drainage. At this point, she is doing fine. We are going to discharge her to home. DISCHARGE PLANS AND MEDICATIONS: Josee is going to be discharged to home with a prescription for clindamycin 300 mg p.o. t.i.d. for 7 days. She is going to use full strength Dakin's soaked gauze to pack the wound for 4 full days. On the 5th day, she will switch over to saline. She is going to wash her wound with soap and water twice a day. She is going to use a standard skin lotion around her skin, but not directly down in the wound. She is going to use no tape on her breasts, simply place gauze over the area after it is packed and then use her bra to hold that in place and then we were going to have her back in about 7 to 10 days for followup. She can resume all her chronic medications. We are going to give her [place] Electronically Signed By: BETH ABARCA MD 08/22/19 1315 PATIENT NAME: JOSEE MACARIO DISCHARGE SUMMARY DATE OF : 78 REPORT #: [id number] PHYSICIAN: BETH ABARCA MD PCP: JOSE GERMAN REPORT IS CONFIDENTIAL AND NOT TO BE RELEASED WITHOUT AUTHORIZATION [facility] [address] [place] [id number] Signed one p.o. q.6 hours p.r.n. for severe postoperative pain. We will dispense #30 tablets with no refills. She can use Tylenol, ibuprofen, or Aleve for [id number] postoperative pain. She can purchase that [id number]. She can continue her activities of daily living including walking up and down stairs and showering and bathing as usual. We are going to let her go back to work in a few days. She has expressed understanding and agrees to above plan. Beth Abarca MD ALB/MODL /[id number] cc: PEGGY Enriquez MD John McBee, MD Copies: JOSE GERMAN ANDREW L MD MCBEE, JOHN MD ~ Electronically Signed By: BETH ABARCA MD 08/22/19 1315 PATIENT NAME: JOSEE MACARIO DISCHARGE SUMMARY DATE OF : 78 REPORT #: [id number] PHYSICIAN: BETH ABARCA MD PCP: JOSE GERMAN REPORT IS CONFIDENTIAL AND NOT TO BE RELEASED WITHOUT AUTHORIZATION
--- NOTE | 2019-08-23 07:11 | PATH ---
[facility] [address] [facility] [place], [place] [address] Signed ORDERING PHYSICIAN: Jose Griffiths MD PATIENT NAME: JOSEE MACARIO GENDER: F : 1980 SPECIMEN(S): MOLECULAR PATHOLOGY RESULTS: SARS-CoV-2 Not Detected ADDITIONAL NOTES.: The [place] Fusion SARS-CoV-2 Assay is a multiplex real-time PCR (RT-PCR) in vitro diagnostic test intended for the qualitative detection of RNA from SARS-CoV-2 from individuals who meet COVID-19 clinical and/or epidemiological criteria. In general, SARS-CoV-2 RNA can be detected during the acute phase of infection. Positive results indicate the presence of SARS-CoV-2 RNA. Clinical correlation with patient history and other diagnostic information is necessary to determine patient infection status. Positive results do not rule out bacterial infection or co-infection with other viruses. Negative results do not preclude SARS-CoV-2 infection and should not be used as the sole basis for patient management decisions. Negative results must be combined with other clinical observations, patient history, and epidemiological information. The [place] Fusion SARS-CoV-2 Assay is not yet approved or cleared by the [place] FDA. When there are no FDA-approved or cleared tests available, and other criteria are met, FDA can make tests available under an emergency access mechanism called an Emergency Use Authorization (EUA). The EUA for this test is supported by the [place] of Health and Human Service's (HHS's) declaration that circumstances exist to justify the emergency use of in vitro diagnostics for the detection and/or diagnosis of the virus that causes COVID-19. This EUA will remain in effect for the duration of the COVID-19 declaration justifying emergency of IVDs, unless it is terminated or revoked by FDA, after which the test may no longer be used. The [place] Fusion SARS-CoV-2 Assay is for use only under EUA in US laboratories certified under the Clinical Laboratory Improvement Amendments of 1988 (CLIA) to perform high complexity tests. [facility] is certified under CLIA to perform high complexity PATIENT NAME: JOSEE MACARIO PATHOLOGY DATE OF : [birth year] REPORT #: [id number] PHYSICIAN: YASMINE GENAO PCP: JOSE GERMAN REPORT IS CONFIDENTIAL AND NOT TO BE RELEASED WITHOUT AUTHORIZATION [address] [address] Signed clinical laboratory testing. PERFORMING LABORATORY.: Molecular testing was performed by [facility] [address] [place], [place] [address] [address] (Supervisor [employer]: Nadeem Mishra D.O.; CLIA#: [id number]) Diagnostician: System Interface Pathologist Electronically Signed 08/23/2019 Copies: ~ PATIENT NAME: JOSEE MACARIO YANI PATHOLOGY DATE OF : [birth year] REPORT #: [id number] PHYSICIAN: YASMINE GENAO PCP: JOSE GERMAN REPORT IS CONFIDENTIAL AND NOT TO BE RELEASED WITHOUT AUTHORIZATION
== END 2019-08-22 09:00 | disposition home or self-care (01) ==
LOC: ED 14:03 → MS 14:05
PROVIDERS: ADMIT Colon & Rectal Surgery
PROC: 0H9U0ZZ Drainage of Left Breast, Open Approach (ICD-10-PCS; principal; 2019-08-20)
DX: N61.1 Abscess of the breast and nipple (principal); I10 Essential (primary) hypertension; F32.9 Major depressive disorder, single episode, unspecified; F41.9 Anxiety disorder, unspecified; Z88.8 Allergy status to other drugs, medicaments and biological substances; Z88.2 Allergy status to sulfonamides; Z79.899 Other long term (current) drug therapy
CPT/HCPCS: 00400; 76642; 80053; 85025; 94760; 94762; 96361; 96365; 96366; 96372; 96374; 96375; 96376; 99284-25; 99406; C9803; G0378; J0330; J0461; J1100; J1170; J1644; J1885; J2250; J2405; J2550; J2704; J2765; J3010; J3370; J3490; J7040; J7060; J7121; U0002

== ENCOUNTER 2020-11-25 05:40 | Day surgery (SDC) | payer OTHER ==
[~2020-11-25] VITALS: Ht 165.1 cm; Wt 103.2 kg
--- NOTE | ~2020-11-25 | OR ---
[facility] [address] [place], [place] [address] Draft DATE OF OPERATION: 11/25/2020 SURGEON: Julio Pineda DO PREOPERATIVE DIAGNOSOS: Abnormal uterine bleeding. POSTOPERATIVE DIAGNOSES: 1. Abnormal uterine bleeding. 2. Pelvic and abdominal adhesions. PROCEDURES PERFORMED: 1. Laparoscopic supracervical hysterectomy. 2. Bilateral salpingectomy. 3. Cystoscopy. 4. Extensive lysis of adhesions. ETHYLBENZENE CRACKING SUPERVISOR: Jose J Piper MD. ANESTHESIA: General. ESTIMATED BLOOD LOSS: 50 mL. SPECIMENS: Bilateral fallopian tubes and uterus amputated at the lower uterine segment. DRAINS: Swift to dependent drainage. FINDINGS: Normal external genitalia with normal clitoris, urethral meatus, bilateral [place] and Bartholin glands. Normal vagina with good apical support and normal cervix. On laparoscopy, dense omental adhesions of the omentum to the anterior abdominal wall from the umbilicus all the way caudad to the lower uterine segment with severe scarring of the bladder to the lower uterine segment. Some scarring near the left adnexa with omental adhesions. Normal-appearing uterus, ovaries, and tubes. Excellent hemostasis and apical support at the end of procedure. Normal bladder with bilateral ureteral jets PATIENT NAME: JOSEE ROBLERO OPERATIVE REPORT DATE OF : [birth year] REPORT #: [id number] PHYSICIAN: JULIO PINEDA DO PCP: BRENNAN AL NP REPORT IS CONFIDENTIAL AND NOT TO BE RELEASED WITHOUT AUTHORIZATION [facility] [address] [place], [place] [address] Draft noted. COMPLICATIONS: None. INDICATIONS: Ms. Roblero is a very pleasant 40-year-old, G4, P3 white female, who was scheduled for total laparoscopic hysterectomy for abnormal uterine bleeding with benign secretory endometrium and recent Pap smear. Surgical history was significant for 3 prior C-sections. Risks, benefits, and alternatives were discussed in detail with the patient. The patient understands and wishes to proceed with the procedure. TECHNIQUE: The patient was taken to the operating room, where time-out was performed to confirm correct patient and correct procedure. General anesthesia was adequately established and the patient was prepped and draped in the dorsal lithotomy position with feet in the [facility] stirrups. Ancef 3 g and heparin 5000 units were given. A Swift catheter was inserted and weighted speculum was placed in the vagina. The anterior lip of the cervix was grasped with an Allis clamp and the cervix was serially dilated with Hegar dilators. A VCare uterine manipulator was advanced to the fundus without difficulty. A Swift catheter was inserted and the surgeon's gloves were changed, and attention was turned to the umbilicus. Approximately 2-3 cm below the umbilicus, a curvilinear incision was made using an 11 blade after infiltration with 0.25% Marcaine with epinephrine. Hemostats were used to bluntly dissect down to the fascia and the fascia was grasped, elevated, and incised using Metzenbaum scissors. The fascial incision was extended bilaterally and stay sutures of 0 Vicryl placed in the superior and inferior edges of the incision. The peritoneum was then entered bluntly and omental adhesions were palpated. A Mansoor operative port was then placed and pneumoperitoneum established. Survey of the abdomen and pelvis was performed that demonstrated dense omental adhesions riding down the center of the abdomen from the umbilicus to the lower uterine segment. Good visualization of the lateral lower abdominal wall was able to be achieved and 8 mm expanding port was placed in the right lower quadrant under direct visualization without complications, and a 5 mm assist port was placed in the left lower quadrant without complications. Omental adhesions were very carefully taken down with excellent surgical technique with careful visualization of each bite to ensure no loops of bowel were contained. Omental adhesions were able to be taken down around to the pelvis. At this point, dissection was felt to be approaching the space of Retzius and no additional dissection down the anterior abdominal wall was performed. The omentum was dissected and the bladder freed. Attention was then turned to hysterectomy. The left fallopian tube was grasped at the fimbriated end and divided along the mesosalpinx and amputated at the cornu. Tube was then delivered through the assist port and sent to pathology for further evaluation. The process was repeated on the right side with dissection of the PATIENT NAME: JOSEE ROBLERO OPERATIVE REPORT DATE OF : [birth year] REPORT #: [id number] PHYSICIAN: JULIO PINEDA DO PCP: BRENNAN AL NP REPORT IS CONFIDENTIAL AND NOT TO BE RELEASED WITHOUT AUTHORIZATION [facility] [address] [place], [place] [address] Draft fallopian tube along the mesosalpinx and amputated the cornua. The left uteroovarian ligament was fulgurated and divided, and the right uterine ligament was fulgurated and divided. The left round ligament was fulgurated and divided. The anterior leaf of the broad ligament was dissected towards the scar, but clear anatomic planes were unable to be visualized and attention was turned to the posterior. The posterior leaf of the broad ligament was then dissected to the uterosacral ligament and across the posterior edge of the vaginal cuff. The uterine vessels were then able to be visualized and they were fulgurated, but not divided. Attention was turned to the right side, where the process was repeated with dissection of the round ligament and the posterior leaf of the broad ligament to the angle of the uterosacral ligament. Extremely dense adhesions of the bladder to the lower uterine segment were identified. In order to delineate the margin between the bladder and the lower uterine segment, the bladder was backfilled using sterile milk. Careful dissection of the right uterine vessels was then performed and they were fulgurated and divided without difficulty. The bladder was unable to be easily dissected off the lower uterine segment and mobilized. With the bladder inflated with sterile milk, Sonicision device was used to score the peritoneum superior to this in very thin layers with attempts to bluntly dissect the bladder away. Each attempt was unsuccessful and the uterine cavity was then incidentally entered using the Sonicision device. At this point, decision was made to abandon attempt at total laparoscopic hysterectomy and proceed with supracervical hysterectomy. The remainder of the uterus was amputated at the level of the lower uterine segment and placed in an EndoCatch bag and delivered through the umbilicus after extending the umbilical incision somewhat. Attention was turned back to the abdomen and pelvis laparoscopically. Excellent hemostasis at the supracervical amputation site was appreciated. The Sonicision device was then used to fulgurate the cervical canal and any portion of the lower uterine segment that remained. Monopolar spatula was also used to fulgurate any residual endometrium in the lower uterine segment and upper cervix. Endostitch device was then used to imbricate the supracervical amputation site and incorporated the uterosacral ligaments for apical support. The pelvis was irrigated and found to be hemostatic. Tisseel was applied to dissection sites with excellent hemostasis appreciated. Attention was then turned to cystoscopy. A Swift catheter was removed after the bladder was drained. A 70-degree cystoscope was placed in the urethral meatus and advanced under direct visualization to the bladder. Normal bladder down and bilateral ureteral jets were appreciated. A Swift catheter was re-inserted after the bladder was drained and attention was turned back to laparoscopy. Final survey of the abdomen and pelvis was performed, demonstrated hemostasis and the assist ports were removed. The Mansoor port was removed and infraumbilical fascia was reapproximated with 0 Vicryl in a running nonlocked manner. Stay sutures were then ligated to provide additional fascial support. Subcutaneous was reapproximated using 2-0 Vicryl in interrupted sutures and skin was reapproximated using 4-0 Monocryl with excellent hemostasis and cosmesis. The patient was then taken to PACU in good and stable condition. PATIENT NAME: JOSEE ROBLERO OPERATIVE REPORT DATE OF : [birth year] REPORT #: [id number] PHYSICIAN: JULIO PINEDA DO PCP: BRENNAN AL NP REPORT IS CONFIDENTIAL AND NOT TO BE RELEASED WITHOUT AUTHORIZATION [facility] [address] [place] [address] Draft Sponge, needle, and instrument counts were correct x2 at the end of the procedure. Dr. Piper was present and participated in all portions of the procedure. Julio Pineda DO JDW/MODL /[id number] Copies: ~ PATIENT NAME: JOSEE ROBLERO OPERATIVE REPORT DATE OF : [birth year] REPORT #: [id number] PHYSICIAN: JULIO PINEDA DO PCP: BRENNAN AL NP REPORT IS CONFIDENTIAL AND NOT TO BE RELEASED WITHOUT AUTHORIZATION
[~2020-11-25 05:40] MED LIST changes: +ALEVE220 MG PO; +CLEOCIN HCL300 MG PO; +IMITREX25 MG PO; +MAGNESIUM100 MG PO; +NEURONTIN100 MG PO; +VITAMIN C120 G1 PO
--- NOTE | 2020-11-25 10:23 | NUR ---
11/25/20 1023 Maty Berumen 1018 PATIENT ARRIVES TO PACU RESTING WITH EYES CLOSED. OPENS EYES WITH VERBAL STIMULI, BACK TO SLEEP WHEN NOT STIMULATED. RESP EVEN AND UNLABORED, SNORING AT TIMES, OCCASIONAL NEED FOR JAW THRUST. HOB ELEVATED.
--- NOTE | 2020-11-25 11:16 | NUR ---
[id number] BACK TO ROOM FROM PACU. RECEIVED REPORT FROM THU LE. PATIENT IS ON 2L VIA NC. VSS. PATIENT DENIES PAIN AND NAUSEA. ABDOMINAL DRESSINGS ARE CLEAN, DRY, AND INTACT. NO VAGINAL BLEEDING. PATIENT IS COLD AND WAS PROVIDED EXTRA WARM BLANKETS AND THE BEAR HUGGER. PROVIDED PATIENT WATER AND JELLO. AT BEDSIDE. CALL LIGHT WITHIN REACH.
--- NOTE | 2020-11-25 12:09 | NUR ---
PATIENT IS RESTING IN BED. DISCOUNTINUED O2 PATIENT SATS AROUND 93 ON RA. VSS. PATIENT RATES HER PAIN 6/10. PAIN MEDICATION GIVEN PER MAR. DENIES NAUSEA. ABDOMINAL DRESSINGS ARE ALL CLEAN, DRY, AND INTACT. NO VAGINAL BLEEDING. PATIENT IS STILL USING THE BEAR HUGGER. PATIENT IS DRINKING WATER. CALL LIGHT WITHIN REACH.
--- NOTE | 2020-11-25 13:11 | NUR ---
1305: VS CHECKED. PATIENT RATES PAIN /. BERNARDO CATHETER DC'D. PATIENT TOLERATED BERNARDO DC WELL. REFILLED ICE WATER. NO NEEDS AT THIS TIME. AT BEDSIDE. CALL LIGHT WITHIN REACH.
--- NOTE | 2020-11-25 14:20 | NUR ---
1355: PATIENT ASSISTED OOB AND TO BATHROOM. GAIT STEADY. VOID APPROXIMATELY 200 ML OF BRIGHT YELLOW URINE. GAIT STEADY BACK TO ROOM. PATIENT GETTING DRESSED WITH HELP FROM . 1420: PATIENT STATES FEELS READY TO GO HOME. DISCHARGE INSTRUCTIONS GIVEN TO PATIENT AND . ALL QUESTIONS ANSWERED.
== END 2020-11-25 14:20 | disposition home or self-care (01) ==
LOC: OPS 05:40 → DS 05:40 → OPS 06:45
PROVIDERS: ATTEND Obstetrics & Gynecology
PROC: 0UT94ZL Resection of Uterus, Supracervical, Percutaneous Endoscopic Approach (ICD-10-PCS; principal; 2020-11-25 06:45)
PROC: 0UT74ZZ Resection of Bilateral Fallopian Tubes, Percutaneous Endoscopic Approach (ICD-10-PCS; 2020-11-25 06:45)
DX: D26.1 Other benign neoplasm of corpus uteri (principal); D28.2 Benign neoplasm of uterine tubes and ligaments; F17.210 Nicotine dependence, cigarettes, uncomplicated; Z80.0 Family history of malignant neoplasm of digestive organs
CPT/HCPCS: 00840; 85027; J0690; J1644; J7121

== ENCOUNTER 2022-12-24 21:10 | Emergency (ER) | payer OTHER ==
[~2022-12-24] VITALS: Ht 165.1 cm; Wt 103.0 kg
--- OUTSIDE RECORDS SUMMARY | 2022-12-24 21:13 | XMS ---
PreManage Notification: JOSEE MACARIO Security In School Suspension Aide Events No recent Security Events currently on file [facility] JOSE GERMAN Nurse Practitioner: Family Current PHONE: Unknown Carlos has no Care Guidelines for this patient. Care History Medical/Surgical 03/18/2019 [facility] - Patient is currently established with [facility]. If patient is seen in the ED during business hours. Please contact CHWs at [facility]. Care Recommendation: If this patient has had 5 or more Emergency Department visits in the last 12 months.\T\nbsp; Patient will require education on the scope and purpose of the ED as an acute care provider not a Primary Care Provider and should not be utilized for chronic conditions.\T\nbsp; These are guidelines and the provider should exercise clinical judgment when providing care. E.D. VISIT COUNT (12 MO.) 1 [facility] TOTAL 2 NOTE: Visits indicate total known visits. ED/UCC VISIT TRACKING (12 MO.) [facility] [place] [facility] Emergency COMPLAINT: - SKIN [facility]OBLE[facility]: Emergency DIAGNOSES: - Tubulo-interstitial nephritis, not specified as acute or chronic - Fever (75 Years Old Or >) - Fever (9 Weeks To 74 Years) - weakness; fever INPATIENT VISIT TRACKING (12 MO.) No inpatient visits to display in this time frame [email or web address]
[2022-12-24] MEDS ORDERED: TRAMADOL HCL50 MG PO (21:22)
[2022-12-24] MEDS ORDERED: TRULICITY0.75 MG/0. SQ (21:28)
[2022-12-24] MEDS ORDERED: LEXAPRO10 MG PO (21:28)
[2022-12-24 21:35] VITALS: BP 157/93
== END 2022-12-24 21:35 | disposition home or self-care (01) ==
LOC: ED 21:10
DX: L73.2 Hidradenitis suppurativa (principal); F17.200 Nicotine dependence, unspecified, uncomplicated; Z88.2 Allergy status to sulfonamides; Z88.1 Allergy status to other antibiotic agents; Z88.8 Allergy status to other drugs, medicaments and biological substances; Z91.048 Other nonmedicinal substance allergy status; Z79.899 Other long term (current) drug therapy
CPT/HCPCS: 99282; A9270

== ENCOUNTER 2023-02-26 06:13 | Emergency (ER) | payer OTHER ==
[~2023-02-26] VITALS: Ht 165.1 cm; Wt 103.0 kg
[~2023-02-26 06:13] MED LIST changes: +LEXAPRO10 MG PO; +TRAMADOL HCL50 MG PO; +TRULICITY0.75 MG/0. SQ
[2023-02-26 06:44] LABS: BASOPHILS 0.5 % (0-2); EOSINOPHILS 0.9 % (0-6); HEMATOCRIT 51.4 % (35.0-50.0); HEMOGLOBIN 17.6 g/dL (12.0-18.0); MCH 29.3 (27-36); MCHC 34.2 g/dl (30-36); MCV 85.6 fl (81-99); MONOCYTES 6.6 % (0-12); PLATELET COUNT 287 K/uL (140-440); RBC 6.01 M/ul (4.3-5.7)
[2023-02-26 06:55] LABS: INR 0.92 (0.80-1.30); PROTIME 11.6 Sec (11.2-14.2)
[2023-02-26 07:06] LABS: ALBUMIN 3.3 g/dL (3.4-5.0); ALBUMIN/GLOBULIN RATIO 0.8 (1.1-2.4); ANION GAP 15.2 (7-21); BILIRUBIN, TOTAL 0.4 ng/dL (0.2-1.0); BUN/CREATININE RATIO 7.59 (6.0-28.6); CALCIUM 9.5 mg/dL (8.5-10.1); CREATININE, SERUM 0.79 mg/dL (0.55-1.02); MAGNESIUM 1.5 mg/dL (1.8-2.4); POTASSIUM 4.2 mmol/L (3.5-5.1); PROTEIN, TOTAL 7.4 g/dL (6.4-8.2)
[2023-02-26] MEDS ORDERED: GLIPIZIDE5 MG PO (07:06)
[2023-02-26] MEDS ORDERED: ONDANSETRON ODT4 MG PO (07:06)
[2023-02-26] MEDS ORDERED: PHENTERMINE HCL15 MG PO (07:06)
[2023-02-26] MEDS ORDERED: FENOFIBRATE145 MG PO (07:06)
[2023-02-26] MEDS ORDERED: CIPROFLOXACIN500 MG PO (07:06)
[2023-02-26 08:00] VITALS: BP 167/114
--- NOTE | 2023-02-26 21:15 | EKG ---
[facility] [address] [facility] [place] [address] Signed Normal sinus rhythm Normal ECG When compared with ECG of 17-NOV-2020 14:48, Criteria for Septal infarct are no longer present Nonspecific T wave abnormality no longer evident in Inferior leads T wave amplitude has increased in Anterior leads Confirmed by TIA MACKEY MD ([id number]) on 02/26/2023 9:15:13 PM Electronically Signed By: TIA MACKEY 02/26/23 2115 PATIENT NAME: JOSEE MACARIO Electrocardiogram DATE OF : [birth year] PHYSICIAN: TIA MACKEY REPORT #: [id number] REPORT IS CONFIDENTIAL AND NOT TO BE RELEASED WITHOUT AUTHORIZATION
--- NOTE | 2023-02-27 15:12 | EKG ---
[facility] [address] [facility] [place], [place] [address] Signed Normal sinus rhythm Normal ECG When compared with ECG of 26-FEB-2023 06:19, (Unconfirmed) No significant change was found Confirmed by TIA MACKEY MD ([id number]) on 02/27/2023 3:11:52 PM Electronically Signed By: TIA MACKEY 02/27/23 1512 PATIENT NAME: JOSEE MACARIO JIMBISMARKFREDO Electrocardiogram DATE OF : [birth year] PHYSICIAN: TIA MACKEY REPORT #: [id number] REPORT IS CONFIDENTIAL AND NOT TO BE RELEASED WITHOUT AUTHORIZATION
== END 2023-02-26 08:03 | disposition short-term general hospital (02) ==
LOC: ED 06:13
PROVIDERS: Family Medicine
DX: I21.4 Non-ST elevation (NSTEMI) myocardial infarction (principal); F17.200 Nicotine dependence, unspecified, uncomplicated; Z88.2 Allergy status to sulfonamides; Z88.8 Allergy status to other drugs, medicaments and biological substances; Z91.09 Other allergy status, other than to drugs and biological substances; Z79.899 Other long term (current) drug therapy
CPT/HCPCS: 36415; 71045; 80053; 83735; 83880; 84484; 85025; 85379; 85610; 85730; 93005; 93010; 96374; 96375; 99285-25; A9270; J1644

== ENCOUNTER 2024-03-27 16:13 | Emergency (ER) | payer OTHER ==
[~2024-03-27] VITALS: Ht 165.1 cm; Wt 109.3 kg
[~2024-03-27 16:13] MED LIST changes: +CIPROFLOXACIN500 MG PO; +FENOFIBRATE145 MG PO; +GLIPIZIDE5 MG PO; +ONDANSETRON ODT4 MG PO; +PHENTERMINE HCL15 MG PO
[2024-03-27] MEDS ORDERED: NITROGLYCERIN 0.4 MG SUBL SL ONE (16:30)
[2024-03-27] MEDS ORDERED: ASPIRIN 325 MG TAB PO ONE (16:30)
[2024-03-27 16:33] LABS: BASOPHILS 0.7 % (0-2); EOSINOPHILS 0.5 % (0-6); HEMATOCRIT 51.9 % (35.0-50.0); HEMOGLOBIN 17.8 g/dL (12.0-18.0); LYMPHOCYTES 36.5 % (24-44); MCH 29.5 (27-36); MCHC 34.3 g/dl (30-36); MCV 86.1 fl (81-99); MONOCYTES 7.6 % (0-12); NEUTROPHILS 54.7 % (39-80); PLATELET COUNT 240 K/uL (140-440); RBC 6.02 M/ul (4.3-5.7); RDW 14.9 (10.5-15.0)
[2024-03-27] MEDS ORDERED: JARDIANCE25 MG PO (16:34)
[2024-03-27] MEDS ORDERED: METFORMIN HCL500 M1 PO (16:34)
[2024-03-27] MEDS ORDERED: CLOPIDOGREL75 MG PO (16:34)
[2024-03-27] MEDS ORDERED: ATORVASTATIN CA40 MG PO (16:34)
[2024-03-27] MEDS ORDERED: LISINOPRIL5 MG PO (16:35)
[2024-03-27] MEDS ORDERED: METOPROLOL SUCC25 MG PO (16:35)
[2024-03-27] MEDS ORDERED: ASPIRIN 81 MG CHEW PO ONE (16:45)
[2024-03-27 16:56] LABS: ALBUMIN 3.7 g/dL (3.4-5.0); ALBUMIN/GLOBULIN RATIO 0.88 (1.1-2.4); ANION GAP 16.9 (7-21); BILIRUBIN, TOTAL 0.5 mg/dL (0.2-1.0); BUN/CREATININE RATIO 22.66 (6.0-28.6); CALCIUM 9.5 mg/dL (8.5-10.1); CREATININE, SERUM 0.75 mg/dL (0.55-1.02); MAGNESIUM 1.9 mg/dL (1.8-2.4); POTASSIUM 3.9 mmol/L (3.5-5.1); PROTEIN, TOTAL 7.9 g/dL (6.4-8.2); TSH, 3RD GENERATION 2.958 uIU/mL (0.358-3.740)
--- NOTE | 2024-03-27 19:16 | EKG ---
[facility] [address] [facility] [place], [place] [address] Signed Normal sinus rhythm Normal ECG When compared with ECG of 26-FEB-2023 07:41, No significant change was found Confirmed by Mao Mcneil MD ([id number]) on 03/27/2024 7:15:44 PM Electronically Signed By: MAO MCNEIL MD 03/27/241915 PATIENT NAME: JOSEE MACARIOFREDO Electrocardiogram DATE OF : [birth year] PHYSICIAN: MAO MCNEIL MD REPORT #: [id number] REPORT IS CONFIDENTIAL AND NOT TO BE RELEASED WITHOUT AUTHORIZATION
[2024-03-27] MEDS ORDERED: CYCLOBENZAPRINE10 MG PO (19:54)
[2024-03-27] MEDS ORDERED: CYCLOBENZAPRINE HCL 10 MG HOME.PACK PO ONE (20:00)
[2024-03-27 20:16] VITALS: BP 135/73
== END 2024-03-27 20:12 | disposition home or self-care (01) ==
LOC: ED 16:13
PROVIDERS: Emergency Medicine
DX: R07.9 Chest pain, unspecified (principal); E87.1 Hypo-osmolality and hyponatremia; F17.200 Nicotine dependence, unspecified, uncomplicated; I25.2 Old myocardial infarction; I25.10 Atherosclerotic heart disease of native coronary artery without angina pectoris; Z95.5 Presence of coronary angioplasty implant and graft; Z88.2 Allergy status to sulfonamides; Z88.8 Allergy status to other drugs, medicaments and biological substances; Z91.048 Other nonmedicinal substance allergy status; Z79.84 Long term (current) use of oral hypoglycemic drugs; Z79.899 Other long term (current) drug therapy
CPT/HCPCS: 36415; 71045; 71260; 80053; 83735; 83880; 84443; 84484; 85025; 93005; 93010; 99285-25; A9270; Q9967